=== PATIENT | male | born 1965 | race Caucasian/White ===

== ENCOUNTER 2017-09-17 17:00 | Emergency (ER) | payer OTHER ==
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
[2017-09-17 18:19] VITALS: BP 138/88
== END 2017-09-17 18:18 | disposition home or self-care (01) ==
PROC: 0HQFXZZ Repair Right Hand Skin, External Approach (ICD-10-PCS; principal; 2017-09-17)
DX: S61.411A Laceration without foreign body of right hand, initial encounter (principal); W26.8XXA Contact with other sharp object(s), not elsewhere classified, initial encounter; Y92.810 Car as the place of occurrence of the external cause; Y99.8 Other external cause status; Y93.89 Activity, other specified

== ENCOUNTER 2018-02-12 07:02 | Emergency (ER) | payer OTHER ==
--- NOTE | 2018-02-12 07:45 | EDPHY ---
H & P Time Seen by Provider: 02/12/18 07:32 HPI/ROS: CHIEF COMPLAINT: Right thigh swelling and pain HISTORY OF PRESENT ILLNESS: Total knee arthroplasty on February 07 of [address] Oliva in [place]. Over the last 24 hr he noticed the proximal to the [place] wrap on the right leg he had increased bruising on the right medial thigh with swelling and pain. Not associated with chest pain or shortness of breath, does not radiate, a little bit worse with palpation. Symptoms mild but concerned the patient for possible DVT. No weakness or numbness in the right foot. REVIEW OF SYSTEMS: Eye: no change in vision ENT: no sore throat Cardiac: No chest pain Pulmonary: no cough or SOB Abdomen: No abdominal pain Musculoskeletal: Some postoperative right knee pain. Skin: Bruising on the right medial calf. Neuro: No weakness or numbness in the right foot. Constitutional: no fever : no urinary symptoms A comprehensive 10 point review of systems is otherwise negative aside from elements mentioned in the history of present illness. PAST MEDICAL HISTORY: Knee arthroplasty and previous orthopedic surgeries. Social history: Primary care Dr. Keshav Cordero General Appearance: Alert and conversant, cooperative. Eyes: No scleral icterus. ENT, Mouth: Normal mucous membranes. Respiratory: Normal respiratory effort, breath sounds equal, lungs are clear to auscultation. Cardiovascular: Regular rate and rhythm. Normal dorsalis pedis pulse in the right foot. Gastrointestinal: Abdomen is soft and non tender. Neurological: Alert, normal motor sensory in the right foot. Skin: Bruising on the right medial thigh but no warmth or redness or lymphangitis or blisters or eschar. Incision is clean dry and intact. Musculoskeletal: Right leg is more swollen than the left, compartments are soft in both thigh and calf. Psychiatric: Not agitated. Emergency Department course/MDM: More likely subcutaneous bruising than DVT. Does not have clinical evidence of arterial occlusion or compartment syndrome or wound infection or cellulitis. Ultrasound, discharge if negative for DVT. Smoking Status: Never smoked Constitutional: Initial Vital Signs Temperature (C) 36.5 C 02/12/18 07:07 Heart Rate 65 02/12/18 07:07 Respiratory Rate 18 02/12/18 07:07 Blood Pressure 124/80 H 02/12/18 07:07 O2 Sat (%) 95 02/12/18 07:07 O2 Delivery Mode Room Air Allergies/Adverse Reactions: acetaminophen [From Tylenol] Allergy (Intermediate, Verified 02/12/18 07:07) Rash Home Medications: Medication Instructions Recorded Albuterol Sulfate [Albuterol 07/28/13 Inhaler Hfa] Hydrocodone/Ibuprofen [Vicoprofen 1 each PO Q6 PRN #12 tablet 07/28/13 200-7.5 Mg Tab] Medical Decision Making - Diagnostics Imaging Results: Imaging Impressions Extremity Venous Study 02/12/18 07:40 Impression: No evidence of deep vein thrombosis in the right lower extremity. Results discussed with Dr. Bk Schneider at 8:42 AM. Imaging: Discussed imaging studies w/ manager deli Radiologist Departure - Departure Disposition: Home, Routine, Self-Care Clinical Impression: Postoperative ecchymosis Condition: Good Instructions: Knee Replacement (DC) Additional Instructions: Ultrasound shows no evidence of clot or DVT in your right leg. Follow-up with your surgeon as scheduled. Referrals: Keshav Cordero MD [Primary Care Provider] - As per Instructions
[2018-02-12 09:01] VITALS: BP 118/75
== END 2018-02-12 09:00 | disposition home or self-care (01) ==
DX: T81.40XA Infection following a procedure, unspecified, initial encounter (principal); Y82.8 Other medical devices associated with adverse incidents